=== PATIENT | male | born 2000 | race Hispanic/Latino ===

== ENCOUNTER 2023-12-25 20:25 | Emergency (ER) | payer BC, MEDICAID ==
[~2023-12-25] VITALS: Ht 172.7 cm; Wt 74.8 kg
[2023-12-25] MEDS: teTANUS/diphthERIA TOXOID [ADULT] 0.5 ML VIAL IM ONE (22:13)
[2023-12-25 22:24] VITALS: BP 116/74; PULSE 92; RESP 16; TEMP 98.1; O2SAT 100
== END 2023-12-25 22:34 | disposition home or self-care (01) ==
LOC: EDH 20:25
DX: S80.811A Abrasion, right lower leg, initial encounter (principal); W22.8XXA Striking against or struck by other objects, initial encounter; Y93.01 Activity, walking, marching and hiking; Y92.89 Other specified places as the place of occurrence of the external cause; Y99.8 Other external cause status
CPT/HCPCS: 90471; 90714